=== PATIENT | male | born 1965 | race African-American/Black ===

== ENCOUNTER 2017-02-07 07:05 | Emergency (ER) | payer MEDICAID, OTHER ==
[~2017-02-07] VITALS: Ht 177.8 cm; Wt 91.0 kg
[2017-02-07] MEDS ORDERED: IBUPROFEN 600MG TABLET PO ONE (08:45)
[2017-02-07 10:53] VITALS: BP 115/70
== END 2017-02-07 10:58 | disposition home or self-care (01) ==
LOC: ER 07:05
DX: M25.532 Pain in left wrist (principal); F17.210 Nicotine dependence, cigarettes, uncomplicated; E11.9 Type 2 diabetes mellitus without complications; F12.10 Cannabis abuse, uncomplicated; Z88.0 Allergy status to penicillin; Z98.890 Other specified postprocedural states
CPT/HCPCS: 29125; 73110; 99284

== ENCOUNTER 2017-06-16 08:29 | Emergency (ER) | payer MEDICAID ==
[~2017-06-16] VITALS: Ht 170.2 cm; Wt 69.0 kg
[2017-06-16 08:34] VITALS: BP 108/63
[2017-06-16] MEDS ORDERED: KETOROLAC 60MG/2ML VIAL IM ONE (11:15)
== END 2017-06-16 12:21 | disposition home or self-care (01) ==
LOC: ER 08:53
DX: M79.652 Pain in left thigh (principal); F17.200 Nicotine dependence, unspecified, uncomplicated; E11.9 Type 2 diabetes mellitus without complications; F12.10 Cannabis abuse, uncomplicated; Z88.0 Allergy status to penicillin
CPT/HCPCS: 73552; 73590; 96372; 99284; J1885